=== PATIENT | male | born 1955 | race Caucasian/White ===

== ENCOUNTER → 2017-03-22 | Outpatient (CLI) | payer OTHER ==
--- NOTE | 2017-03-22 11:35 | KCIC ---
CHEST PA LATERAL, RIBS LEFT History: Left chest wall injury, fall and landed on left arm and ribs 2 days ago with pain Comparison: None. Rib radiographs: 3 views left ribs are submitted. There are displaced left posterolateral fifth, sixth, and seventh rib fractures. IMPRESSION: 1. There are displaced left posterolateral fifth, sixth, and seventh rib fractures. CHEST: Findings: There is no pneumothorax or significant dependent pleural fluid. There is linear opacity right lung base, also some linear opacity left lung base. Cardiac silhouette is within normal limits. Impression: 1. There is linear likely atelectasis of the lung bases. Electronically signed by: Roshan Guerra MD (03/22/2017 11:32 AM) [email or web address]
== END | disposition home or self-care (01) ==
LOC: KCIC 10:51
PROVIDERS: ATTEND Physician Assistant
DX: S22.32XD Fracture of one rib, left side, subsequent encounter for fracture with routine healing (principal); X58.XXXD Exposure to other specified factors, subsequent encounter
CPT/HCPCS: 71020; 71100